=== PATIENT | female | born 1990 | race African-American/Black ===

== ENCOUNTER 2020-02-10 03:24 | Inpatient (IN) | payer OTHER ==
[~2020-02-10] VITALS: Ht 165.1 cm; Wt 93.0 kg
[2020-02-10] MEDS ORDERED: SODIUM CHLORIDE 0.9% 1,000 ML IV ONE ×2 (03:51→04:48)
[2020-02-10] MEDS ORDERED: METOCLOPRAMIDE HCL 10MG/2ML VIAL IV STA (03:51)
[2020-02-10] MEDS ORDERED: FAMOTIDINE 20MG/2ML VIAL IV STA (03:51)
[2020-02-10 04:24] LABS: HEMATOCRIT. 46.4 % (36.0-48.0); HEMOGLOBIN. 15.5 g/dL (12.0-16.0); MEAN CORPUSCULAR HEMOGLOBIN 30.2 pg (28.0-32.0); MEAN CORPUSCULAR VOLUME 90.4 fL (81.0-99.0); MEAN PLATELET VOLUME 9.8 fl (7.4-10.4); PLATELET 374 x1000/uL (130-400); RED BLOOD CELL COUNT 5.13 mill/uL (4.2-5.4); RED CELL DISTRIBUTION WIDTH 12.6 % (11.6-14.6)
[2020-02-10 04:26] LABS: CHLORIDE 91 mEq/L (98-107)
[2020-02-10 04:52] LABS: CLARITY URINE CLEAR (CLEAR); COLOR URINE YELLOW (YELLOW); KETONES URINE 4+ (NEGATIVE); LEUKOCYTE ESTERASE URINE NEGATIVE (NEGATIVE); NITRITE URINE NEGATIVE (NEGATIVE); OCCULT BLOOD URINE 3+ (NEGATIVE); PROTEIN URINE 2+ (NEGATIVE); SPECIFIC GRAVITY URINE 1.024 (1.005-1.030); UROBILINOGEN URINE 0.2 E.U./dL (0.2-1.0)
[2020-02-10 04:58] LABS: PLATELET ESTIMATE NORMAL
[2020-02-10] MEDS ORDERED: INSULIN REGULAR (DRIP) 100 UNITS in SODIUM CHLORIDE 0.9% 99 ML IV SCH (05:00)
[2020-02-10 05:22] LABS: BG BASE EXCESS -22.8 mmol/L (-2.0-2.0); BG CARBOXYHEMOGLOBIN 0.2 % (0.5-1.5); BG DEOXYHEMOGLOBIN 2.4 % (0.0-5.0); BG FRACTION INSPIRED OXYGEN 21; BG HCO3 ACT 4.3 mmol/L (22.0-26.0); BG METHEMOGLOBIN 0.5 % (0.0-1.5); BG OXYGEN SATURATION 97.6 % (92.0-98.5); BG OXYHEMOGLOBIN 96.9 % (94.0-97.0); BG PCO2 13.5 mmHg (35.0-45.0); BG PH 7.116 (7.350-7.450); BG PO2 119.9 mmHg (75.0-100.0); BG SAMPLE SITE RIGHT RADIAL; BG TOTAL HEMOGLOBIN 14.9 g/dL (12.0-18.0); BG VENT MODE ROOM AIR
[2020-02-10 11:15] LABS: CHLORIDE 104 mEq/L (98-107)
[2020-02-10] MEDS ORDERED: ACETAMINOPHEN 325MG TABLET PO PRN (13:30)
[2020-02-10 13:51] LABS: PHOSPHORUS 1.6 mg/dL (2.5-4.9)
[2020-02-10] MEDS: PANTOPRAZOLE SODIUM 40 MG/VIAL IV SCH (13:52)
[2020-02-10] MEDS: SODIUM CHLORIDE 0.9% 1,000 ML IV SCH ×3 (13:52→21:58)
[2020-02-10] MEDS ORDERED: CEFTRIAXONE 1 G PREMIX 50 ML IV SCH (15:00)
[2020-02-10] MEDS ORDERED: SODIUM PHOS,M-BASIC-D-BASIC 20 MM in DEXT 5% WATER 243.3333 ML IV ONE (16:00)
[2020-02-10 20:47] LABS: CHLORIDE 107 mEq/L (98-107)
[2020-02-10] MEDS: ONDANSETRON HCL 4MG/2ML INJ IV PRN (21:58)
[2020-02-10 22:20] VITALS: BP 126/87
[2020-02-10 22:30] VITALS: BP 121/77
[2020-02-10 23:00] VITALS: BP_SYST 103; BP_SYST 117; BP_DIAS 70; BP_DIAS 78
[2020-02-10 23:30] VITALS: BP 111/68
[2020-02-11] VITALS (31 sets, daily range): BP systolic 97–169; BP diastolic 37–84
[2020-02-11 00:59] LABS: CHLORIDE 110 mEq/L (98-107)
[2020-02-11] MEDS: SODIUM CHLORIDE 0.9% 1,000 ML IV SCH (02:13)
[2020-02-11 04:56] LABS: HEMATOCRIT. 37.9 % (36.0-48.0); MEAN CORPUSCULAR HEMOGLOBIN 30.1 pg (28.0-32.0); MEAN CORPUSCULAR VOLUME 87.6 fL (81.0-99.0); PLATELET 254 x1000/uL (130-400); RED BLOOD CELL COUNT 4.33 mill/uL (4.2-5.4); RED CELL DISTRIBUTION WIDTH 12.6 % (11.6-14.6)
[2020-02-11 05:02] LABS: CHLORIDE 113 mEq/L (98-107)
[2020-02-11 05:13] LABS: PHOSPHORUS 0.8 mg/dL (2.5-4.9)
[2020-02-11] MEDS: DEXT 5%/0.45% NACL 1000ML 1,000 ML IV SCH ×2 (05:22→13:56)
[2020-02-11] MEDS: ONDANSETRON HCL 4MG/2ML INJ IV PRN ×2 (06:44→17:24)
[2020-02-11] MEDS: BLOOD SUGAR DIAGNOSTIC STRIP TEST SCH ×9 (07:40→20:59)
[2020-02-11] MEDS ORDERED: DEXTROSE 50% WATER 50ML SYRINGE IV PRN ×3 (07:45→16:45)
[2020-02-11] MEDS ORDERED: INSULIN REGULAR (DRIP) 100 UNITS in SODIUM CHLORIDE 0.9% 100 ML IV SCH (08:00)
[2020-02-11] MEDS ORDERED: POTASSIUM PHOS,M-BASIC-D-BASIC 10 MMOL in DEXT 5% WATER 246.6667 ML IV NR (08:00)
[2020-02-11 08:39] LABS: CHLORIDE 112 mEq/L (98-107)
[2020-02-11] MEDS: PANTOPRAZOLE SODIUM 40 MG/VIAL IV SCH (09:05)
[2020-02-11 09:24] LABS: PLATELET ESTIMATE NORMAL
[2020-02-11] MEDS ORDERED: CLONIDINE 0.1MG TABLET PO PRN (11:30)
[2020-02-11] MEDS ORDERED: POTASSIUM CHLORIDE INJ 40 MEQ in DEXT 5% WATER 250 ML IV NR (12:00)
[2020-02-11] MEDS: METOCLOPRAMIDE HCL 10MG/2ML VIAL IV SCH ×3 (12:12→23:50)
[2020-02-11 12:20] LABS: CHLORIDE 111 mEq/L (98-107)
[2020-02-11 16:21] LABS: CHLORIDE 115 mEq/L (98-107)
[2020-02-11] MEDS: CEFTRIAXONE 1 G PREMIX 50 ML IV SCH (17:26)
[2020-02-11] MEDS ORDERED: INSULIN GLARGINE UD 100 UNITS/ML SYR SUBCUT SCH (18:00)
[2020-02-11] MEDS: INSULIN LISPRO 100 UNITS/ML SUBCUT SCH ×2 (19:04→21:04)
[2020-02-11 20:13] LABS: CHLORIDE 108 mEq/L (98-107)
[2020-02-11] MEDS ORDERED: POTASSIUM CHLORIDE 20MEQ TABLET SR PO NR (21:00)
[2020-02-12] VITALS (20 sets, daily range): BP systolic 87–147; BP diastolic 38–90
[2020-02-12 05:03] LABS: BASOPHILS % 0.2 % (0.0-2.0); EOSINOPHILS % 0.5 % (0.0-5.0); HEMATOCRIT. 34.1 % (36.0-48.0); LYMPHOCYTES % 11.2 % (20.0-50.0); MEAN CORPUSCULAR HEMOGLOBIN 30.2 pg (28.0-32.0); MEAN CORPUSCULAR VOLUME 86.2 fL (81.0-99.0); MEAN PLATELET VOLUME 8.8 fl (7.4-10.4); MONOCYTES % 11.6 % (2.0-8.0); NEUTROPHILS % 76.5 % (40.0-76.0); PLATELET 234 x1000/uL (130-400); RED BLOOD CELL COUNT 3.96 mill/uL (4.2-5.4); RED CELL DISTRIBUTION WIDTH 12.2 % (11.6-14.6)
[2020-02-12] MEDS: METOCLOPRAMIDE HCL 10MG/2ML VIAL IV SCH ×3 (05:21→17:32)
[2020-02-12 06:50] LABS: PHOSPHORUS 1.1 mg/dL (2.5-4.9)
[2020-02-12] MEDS: BLOOD SUGAR DIAGNOSTIC STRIP TEST SCH ×3 (07:17→16:54)
[2020-02-12] MEDS ORDERED: POTASSIUM PHOS,M-BASIC-D-BASIC 15 MMOL in DEXT 5% WATER 245 ML IV NR ×2 (08:00→12:00)
[2020-02-12] MEDS: PANTOPRAZOLE SODIUM 40 MG/VIAL IV SCH (08:37)
[2020-02-12] MEDS: INSULIN LISPRO 100 UNITS/ML SUBCUT SCH ×3 (08:38→17:33)
[2020-02-12] MEDS ORDERED: FAMO-135 MT (11:12)
[2020-02-12] MEDS ORDERED: INSU100I28 SQ (11:12)
[2020-02-12 12:25] LABS: CHLORIDE 107 mEq/L (98-107)
[2020-02-12] MEDS: ONDANSETRON HCL 4MG/2ML INJ IV PRN (16:43)
[2020-02-12] MEDS: CEFTRIAXONE 1 G PREMIX 50 ML IV SCH (17:00)
[2020-02-12] MEDS ORDERED: INSU100I24 SQ (17:12)
[2020-02-12] MEDS ORDERED: INSULIN GLARGINE UD 100 UNITS/ML SYR SUBCUT SCH (22:00)
== END 2020-02-12 18:30 | disposition home or self-care (01) | DRG 720 ==
LOC: ER 03:24 → CVICU 05:17 → ENRESERV 21:01
PROVIDERS: ADMIT Internal Medicine; ATTEND Internal Medicine
DX: A41.9 Sepsis, unspecified organism (principal); E11.10 Type 2 diabetes mellitus with ketoacidosis without coma; E44.0 Moderate protein-calorie malnutrition; K85.90 Acute pancreatitis without necrosis or infection, unspecified; E66.9 Obesity, unspecified; E87.1 Hypo-osmolality and hyponatremia; E83.39 Other disorders of phosphorus metabolism; E87.8 Other disorders of electrolyte and fluid balance, not elsewhere classified; I10 Essential (primary) hypertension; K21.9 Gastro-esophageal reflux disease without esophagitis; K76.0 Fatty (change of) liver, not elsewhere classified; Z68.34 Body mass index [BMI] 34.0-34.9, adult; Z71.3 Dietary counseling and surveillance
CPT/HCPCS: 36415; 36600; 71045; 76705; 80048; 80053; 81003; 82010; 82375; 82805; 82962; 83036; 83735; 84100; 84145; 84681; 85025; 99291; C9113; J0696; J1815; J2405; J2765; J3480; J3490; J7030; J7050; J7060